=== PATIENT | female | born 1975 | race Caucasian/White ===

== ENCOUNTER 2021-07-12 11:45 | Emergency (ER) | payer SELFPAY ==
[~2021-07-12] VITALS: Ht 167.6 cm; Wt 68.0 kg
[2021-07-12 11:51] VITALS: BP 142/86
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
[2021-07-12] MEDS ORDERED: MORPHINE SULFATE INJ 4 MG/ML DISP.SYRIN ONE (12:14)
[2021-07-12] MEDS ORDERED: MORPHINE SULFATE INJ 2 MG/ML DISP.SYRIN IM ONE (12:30)
[2021-07-12] MEDS ORDERED: ACET1TAB23 PO (12:46)
--- NOTE | 2021-07-12 13:01 | NUR ---
Patient discharged to home in stable condition. Written and verbal after care instructions given. Patient verbalizes understanding of instruction. PT ambulatory with a steady gait
== END 2021-07-12 13:07 | disposition home or self-care (01) ==
LOC: ER 11:52
DX: G89.29 Other chronic pain (principal); M54.9 Dorsalgia, unspecified
CPT/HCPCS: 96372; 99283; J2270

== ENCOUNTER 2021-11-26 21:22 | Emergency (ER) | payer SELFPAY ==
[~2021-11-26] VITALS: Ht 167.6 cm; Wt 65.8 kg
[~2021-11-26 21:22] MED LIST: ACET1TAB23 PO
--- NOTE | 2021-11-26 22:07 | NUR ---
CALLED FOR TRIAGE. NO ANSWER
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
--- NOTE | 2021-11-26 23:14 | NUR ---
SEEN BY DR OWENS AT BEDSIDE
[2021-11-26] MEDS ORDERED: LIDOCAINE 1%-EPI 1:100,000 20 ML VIAL ONE (23:17)
[2021-11-26] MEDS ORDERED: LIDOCAINE/PRILOCAINE (5GM) 5 GM TUBE TP ONE (23:17)
[2021-11-26] MEDS ORDERED: CLINDAMYCIN HCL 150 MG CAPSULE ONE (23:17)
[2021-11-26] MEDS ORDERED: LIDOCAINE/PRILOCAINE 1 EA KIT TP ONE (23:30)
[2021-11-26] MEDS ORDERED: CLINDAMYCIN HCL 150 MG CAPSULE PO ONE (23:30)
[2021-11-26] MEDS ORDERED: LIDOCAINE 1%-EPI 1:100,000 20 ML VIAL TP ONE (23:30)
[2021-11-27] MEDS ORDERED: CLIN300C12 PO (01:03)
[2021-11-27] MEDS ORDERED: NAPR-1192 PO (01:03)
[2021-11-27] MEDS ORDERED: CEPH500C2 PO (01:03)
[2021-11-27 01:07] VITALS: BP 130/88
--- NOTE | 2021-11-27 01:07 | NUR ---
Patient discharged to home in stable condition. Written and verbal after care instructions given. Patient verbalizes understanding of instruction.
== END 2021-11-27 01:08 | disposition home or self-care (01) ==
LOC: ER 21:30
DX: L02.415 Cutaneous abscess of right lower limb (principal); L73.2 Hidradenitis suppurativa
CPT/HCPCS: 10060; 76882; 99284; A6407; J3490